=== PATIENT | female | born 1975 | race Caucasian/White ===

== ENCOUNTER 2017-03-27 12:49 | Inpatient (IN) | payer BC ==
[~2017-03-27] VITALS: Ht 162.6 cm; Wt 76.7 kg
[2017-03-27] MEDS ORDERED: LR 1,000 ML IV ONE (13:02)
[2017-03-27] MEDS ORDERED: CEFAZOLIN 2 GM IVPB PREMIX 50 ML IV ONE ×2 (13:15)
[2017-03-27] MEDS ORDERED: AMPICILLIN SODIUM 2 GM in NS 100 ML IV ONE (13:30)
[2017-03-27 13:45] LABS: BASOPHILS % (AUTO) 0.4 % (0.0-2.0); EOSINOPHILS # (AUTO) 0.1 K/uL (0.0-0.4); HEMATOCRIT 37.5 % (36-48); HEMOGLOBIN 12.5 g/dL (12.0-16.0); LYMPHOCYTES % (AUTO) 14.3 % (20.5-51.5); MEAN CORPUSCULAR HEMOGLOBIN 30 pg (27-31); MEAN CORPUSCULAR HGB CONC 33 % (32-36); MEAN CORPUSCULAR VOLUME 89 fL (79.0-98.0); MONOCYTES # (AUTO) 0.4 K/uL (0.0-1.0); MONOCYTES % (AUTO) 6.3 % (1.7-9.3); NEUTROPHILS # (AUTO) 5.6 K/uL (1.8-7.7); PLATELET COUNT (AUTO) 244 K/uL (130-430); RED CELL DISTRIBUTION WIDTH 13.4 % (9.0-15.0); WHITE BLOOD COUNT (AUTO) 7.1 K/uL (4.8-10.8)
[2017-03-27 13:54] LABS: BILIRUBIN,URINE NEGATIVE (NEGATIVE); BLOOD, URINE NEGATIVE (NEGATIVE); CLARITY/URINE SL HAZY (CLEAR); COLOR,URINE YELLOW (YELLOW); GLUCOSE,URINE NEGATIVE (NEGATIVE); KETONES,URINE TRACE (NEGATIVE); LEUKOCYTE ESTERASE ,URINE TRACE (NEGATIVE); NITRITE, URINE NEGATIVE (NEGATIVE); PH,URINE 5.5 (5.0-8.0); PROTEIN URINE NEGATIVE (NEGATIVE); UROBILINOGEN,URINE 0.2 (0.2-1.0)
[2017-03-27 14:14] LABS: BACTERIA,URINE MODERATE /HPF (None Seen); RBC,URINE NONE SEEN /HPF (0-3); WBC,URINE 0-3 /HPF (0-3)
[2017-03-27] MEDS ORDERED: LR 1,000 ML IV SCH ×2 (17:30→19:59)
[2017-03-27] MEDS ORDERED: NALOXONE HCL 0.4 MG/ML AMP (NARCAN) IVP PRN ×3 (17:30)
[2017-03-27] MEDS ORDERED: MEPERIDINE HCL/PF 25 MG/ML DISP.SYRIN IVP PRN ×2 (17:30)
[2017-03-27] MEDS ORDERED: HYDROmorphone 1 MG INJ. 1 MG/ML AMPUL IVP PRN (17:30)
[2017-03-27] MEDS ORDERED: ONDANSETRON HCL 4 MG/2 ML VIAL IVP PRN (17:30)
[2017-03-27] MEDS ORDERED: MORPHINE SULFATE 10MG/10ML PF AMP SP SCH (17:30)
[2017-03-27] MEDS ORDERED: DIPHENHYDRAMINE INJ 50 MG/ML VIAL IVP PRN (17:30)
[2017-03-27] MEDS ORDERED: NALOXONE HCL 1 MG in NACL 0.9% 1,000 ML IV PRN ×4 (17:30)
[2017-03-27] MEDS ORDERED: DIPHENHYDRAMINE HCL 50 MG CAPSULE PO PRN (17:30)
[2017-03-27] MEDS ORDERED: HYDROmorphone 2 MG/ML VIAL IVP PRN ×2 (17:30)
[2017-03-27] MEDS ORDERED: OXYTOCIN/NORMAL SALINE 1,000 ML IV ONE ×2 (17:50→19:59)
[2017-03-27] MEDS ORDERED: LANOLIN 7 GM OINT. TP PRN (20:00)
[2017-03-28] MEDS: CEFAZOLIN 1 GM IVPB PREMIX 50 ML IV SCH ×3 (00:06→12:10)
[2017-03-28] MEDS ORDERED: KETOROLAC TROMETHAMINE 30 MG VIAL IVP SCH (06:00)
[2017-03-28] MEDS: KETOROLAC TROMETHAMINE 30 MG VIAL IVP SCH ×4 (06:11→23:39)
[2017-03-28 07:34] LABS: BASOPHILS % (AUTO) 0.2 % (0.0-2.0); EOSINOPHILS % (AUTO) 0.4 % (0.0-4.0); HEMATOCRIT 30.8 % (36-48); HEMOGLOBIN 10.4 g/dL (12.0-16.0); LYMPHOCYTES # (AUTO) 0.9 K/uL (1.0-5.5); LYMPHOCYTES % (AUTO) 7.5 % (20.5-51.5); MEAN CORPUSCULAR HEMOGLOBIN 30 pg (27-31); MEAN CORPUSCULAR HGB CONC 34 % (32-36); MEAN CORPUSCULAR VOLUME 89 fL (79.0-98.0); MONOCYTES # (AUTO) 0.5 K/uL (0.0-1.0); MONOCYTES % (AUTO) 4.6 % (1.7-9.3); NEUTROPHILS # (AUTO) 10.3 K/uL (1.8-7.7); NEUTROPHILS % (AUTO) 87.3 % (40.0-70.0); PLATELET COUNT (AUTO) 188 K/uL (130-430); RED BLOOD CELL COUNT(AUTO) 3.47 MIL/uL (4.2-6.2); RED CELL DISTRIBUTION WIDTH 13.7 % (9.0-15.0); WHITE BLOOD COUNT (AUTO) 11.7 K/uL (4.8-10.8)
[2017-03-28 09:46] VITALS: BP_SYST 144
[2017-03-28] MEDS: SIMETHICONE 80 MG TAB.CHEW PO PRN (12:09)
[2017-03-29] MEDS: IBUPROFEN 600 MG TABLET PO SCH ×4 (06:19→18:13)
[2017-03-29] MEDS: SIMETHICONE 80 MG TAB.CHEW PO PRN (08:28)
[2017-03-29] MEDS: OXYCODONE/ACETAMINOPHEN 5-325 TABLET PO PRN ×3 (08:29→19:17)
[2017-03-30] MEDS: IBUPROFEN 600 MG TABLET PO SCH ×5 (00:12→23:54)
[2017-03-30] MEDS: OXYCODONE/ACETAMINOPHEN 5-325 TABLET PO PRN ×4 (01:27→23:53)
[2017-03-30] MEDS: SIMETHICONE 80 MG TAB.CHEW PO PRN ×2 (08:06→12:42)
[2017-03-30] MEDS: DOCUSATE SODIUM 100 MG CAPSULE PO PRN (08:07)
[2017-03-31] MEDS: IBUPROFEN 600 MG TABLET PO SCH ×2 (06:18→12:01)
[2017-03-31] MEDS: OXYCODONE/ACETAMINOPHEN 5-325 TABLET PO PRN (08:15)
[2017-03-31] MEDS: DOCUSATE SODIUM 100 MG CAPSULE PO PRN (08:15)
== END 2017-03-31 16:25 | disposition home or self-care (01) | DRG 765 ==
LOC: SPU 12:49
PROVIDERS: ADMIT Specialist; ATTEND Specialist
PROC: 10D00Z1 Extraction of Products of Conception, Low, Open Approach (ICD-10-PCS; principal; 2017-03-27 16:00)
DX: O43.123 Velamentous insertion of umbilical cord, third trimester (principal); O36.5930 Maternal care for other known or suspected poor fetal growth, third trimester, not applicable or unspecified; O32.1XX0 Maternal care for breech presentation, not applicable or unspecified; Z37.0 Single live birth; Z3A.38 38 weeks gestation of pregnancy; O09.513 Supervision of elderly primigravida, third trimester; Z88.0 Allergy status to penicillin
CPT/HCPCS: 36415; 81000-TC; 85025; 86592; 86886; 86900; 86901; 87086; 94760; J0290; J0690; J1885; J2405; J2590